=== PATIENT | female | born 1955 | race Caucasian/White ===

== ENCOUNTER 2017-02-17 06:04 | Day surgery (SDC) | payer MEDICAID ==
[2017-02-14 09:40] LABS: HEMATOCRIT 42.3 % (36.0-48.0); HEMOGLOBIN 14.5 g/dL (12-16); MCHC 34.3 g/dL (31.0-37.0); MCV 90.4 fL (80.0-100.0); MEAN PLATELET VOLUME 10.2 fL (7.4-10.4); RBC 4.68 10x6/uL (4.00-5.40); WBC 5.7 10x3/uL (4.8-10.8)
[~2017-02-17] VITALS: Ht 147.3 cm; Wt 53.1 kg
[~2017-02-17 06:04] MED LIST: ADVAIR 250/501 DISK INH; BENZONATATE200 MG PO; COMBIVENT RESPIM4 GM INH; IBUPROFEN800 MG PO; IPRAT-ALBUT 0.5-3 ML UPD; OMNICEF300 MG PO; SINGULAIR10 MG PO; SOLU-MEDRO40 MG/1 M1 PO; ZITHROMAX 500M500 MG PO
[2017-02-17] MEDS ORDERED: ZANAFLEX4 MG PO (06:48)
[2017-02-17 06:49] VITALS: BP 127/68; Ht 147.3 cm; Wt 53.1 kg
[2017-02-17] MEDS ORDERED: MEPERIDINE HCL50 MG PO (09:18)
--- NOTE | 2017-02-17 12:55 | OP ---
PATIENT NAME: DUNIA MCGUIRE MEDICAL RECORD: [id number] :57 LOCATION:D.[facility] ADMISSION DATE: SURGEON: GABBY GOLD MD DATE OF OPERATION: 02/17/2017 SURGEON: Gabyb Gold MD PREOPERATIVE DIAGNOSES: 1. Incisional hernia. 2. Chronic obstructive pulmonary disease. 3. Pulmonary emphysema. 4. Tobacco dependence. POSTOPERATIVE DIAGNOSES: 1. Incisional hernia. 2. Chronic obstructive pulmonary disease. 3. Pulmonary emphysema. 4. Tobacco dependence. PROCEDURE PERFORMED: Laparoscopic incisional hernia repair with mesh. ANESTHESIA: General. COMPLICATIONS: None. SPECIMENS: None. Case was clean. OPERATIVE COURSE: After consent was obtained, the patient was taken to the operating room and placed in the supine position on the operating table. Next, general anesthesia was given via endotracheal intubation after a timeout was performed to confirm the correct patient and procedure. The abdomen was prepped and draped in typical sterile fashion and Ioban dressing was placed. Local anesthetic was injected in the left upper quadrant at Orellana's point. Using a 5-mm bladeless optical trocar, the abdomen was entered under direct laparoscopic vision. Adequate pneumoperitoneum was achieved. The abdominal cavity was inspected. No evidence of bowel injury. No evidence of bleeding. At this time, all remaining trocars were placed, 11-mm trocar into the left lateral quadrant; 5-mm trocar into the right lower, left lower, and right upper quadrants. Laparoscopic lysis of adhesions was performed. The patient had a 4 cm diameter hernia defect at the upper portion of her midline incision as well as significant multiple other small hernia defects within the midline incision. After laparoscopic lysis of adhesions was performed, a Ventralight ST mesh with Echo positioning system was placed in the abdomen. It was 7 inch x 9 inch. It was oriented 9 inches in the cephalad caudad position, 7 cm in width. A Tim-Coni was passed through the hernia defect. The Echo positioning system was inflated and the mesh was held against the anterior abdominal wall. The mesh was then secured with OptiFix tacks in a double crown fashion. The Echo positioning system was removed. The abdominal cavity was inspected. No evidence of bowel injury. No evidence of bleeding. The abdominal cavity was meticulously inspected. There was no evidence of bowel injury. No evidence of bleeding. At this time, all remaining instruments were removed. The abdomen was desufflated. Trocars were removed. Skin was closed with 4-0 Monocryl, Mastisol and Steri-Strips. At the end of the case, all needle and instrument OPERATIVE REPORT [id number] TEET,DUNIA S counts were correct. No complications occurred. The patient was extubated and transferred to the PACU in stable condition. TRANSINT:[id number] Voice Confirmation ID: [id number] DOCUMENT ID: [id number] GABBY GOLD MD at 1255 CC: [id number] DICTATION DATE: 02/17/17915 HOSPITAL PHARMACIST: 02/17/17 1[address] [facility] [address] [place] [address]
== END 2017-02-17 16:25 | disposition home or self-care (01) ==
LOC: D.OPS 06:04 → D.PAN 08:00 → D.OPS 08:00
PROVIDERS: Anesthesiology
DX: K43.2 Incisional hernia without obstruction or gangrene (principal); J44.9 Chronic obstructive pulmonary disease, unspecified; F17.200 Nicotine dependence, unspecified, uncomplicated; Z01.812 Encounter for preprocedural laboratory examination

== ENCOUNTER → 2018-02-02 07:53 | Outpatient (CLI) | payer MEDICAID ==
[2017-02-17 06:49] VITALS: BMI 24.5
[~2018-02-02 07:53] MED LIST changes: +MEPERIDINE HCL50 MG PO; +ZANAFLEX4 MG PO
== END | disposition home or self-care (01) ==
LOC: D.CT 07:53
DX: R10.9 Unspecified abdominal pain (principal)

== ENCOUNTER → 2019-12-28 08:24 | Outpatient (CLI) | payer OTHER ==
[2017-02-17 06:49] VITALS: BMI 24.5
== END | disposition home or self-care (01) ==
LOC: D.MRI 08:24
PROVIDERS: ATTEND Nurse Practitioner Family
DX: M67.471 Ganglion, right ankle and foot (principal)

== ENCOUNTER 2020-07-31 16:43 | Emergency (ER) | payer OTHER ==
[~2020-07-31] VITALS: Ht 147.3 cm; Wt 53.6 kg
[2020-07-31 16:50] VITALS: Ht 147.3 cm; Wt 53.6 kg
[2020-07-31 18:58] LABS: BASOPHILS 1.1 % (0-2); HEMATOCRIT 45.3 % (36.0-48.0); HEMOGLOBIN 15.1 g/dL (12-16); LYMPHOCYTES 29.1 % (15-50); MCH 30.3 pg (26.0-34.0); MCHC 33.4 g/dL (31.0-37.0); MCV 90.6 fL (80.0-100.0); MEAN PLATELET VOLUME 9.5 fL (7.4-10.4); MONOCYTES 7.2 % (2-11); NEUTROPHILS 61.6 % (40-80); RDW 13.5 % (11.5-14.5); WBC 8.8 10x3/uL (4.8-10.8)
[2020-07-31 19:05] LABS: APTT 23.7 SECONDS (22.8-39.4); INR 1.07 (0.85-1.17); PROTIME 12.9 SECONDS (11.6-15.0)
[2020-07-31 19:12] LABS: CALC OSMOLALITY 266 mosm/kg (275-300); CALCIUM 9.6 mg/dL (8.5-10.1); CARBON DIOXIDE 28.3 mmol/L (21.0-32.0); CHLORIDE - SERUM 99 mmol/L (98-107); CREATININE - SERUM 0.8 mg/dL (0.6-1.3); GLUCOSE 110 mg/dL (74-106); SODIUM 133 mmol/L (136-145); UREA NITROGEN 12 mg/dL (7-18); eGFR NON AFRICAN AMERICAN 76 mL/min (90-120)
[2020-07-31 19:15] LABS: PLATELET COUNT 242 10x3/uL (130-400)
[2020-07-31 19:29] LABS: ALBUMIN 4.1 g/dL (3.4-5.0); ALKALINE PHOSPHATASE 143 U/L (30-120); ALT (SGPT) 27 U/L (10-68); BILIRUBIN - TOTAL 0.32 mg/dL (0.2-1.3); CKMB 1.4 U/L (0.0-3.6); CREATINE KINASE 85 UL (21-215); PROTEIN - SERUM 8.5 g/dL (6.4-8.2); THYROID STIMULATING HORMONE 3.89 uIU/mL (0.36-3.74); TROPONIN-I < 0.017 ng/mL (0.000-0.060)
[2020-07-31 19:44] LABS: BILIRUBIN NEGATIVE (NEGATIVE); KETONE NEGATIVE (NEGATIVE); NITRITE NEGATIVE (NEGATIVE); UROBILINOGEN NORMAL mg/dL (< 2)
[2020-07-31 19:53] LABS: UDS - AMPHET NEGATIVE QUAL (NEGATIVE); UDS - BARB NEGATIVE QUAL (NEGATIVE); UDS - BENZO NEGATIVE QUAL (NEGATIVE); UDS - COCAINE NEGATIVE QUAL (NEGATIVE); UDS - OPIATE NEGATIVE QUAL (NEGATIVE); UDS - PCP NEGATIVE QUAL (NEGATIVE); UDS - THC POSITIVE QUAL (NEGATIVE)
[2020-07-31] MEDS ORDERED: SYNTHROID50 MCG PO (20:59)
[2020-07-31 21:27] VITALS: BP 135/48
== END 2020-07-31 21:28 | disposition home or self-care (01) ==
LOC: D.ER 16:43
PROVIDERS: Family Medicine
DX: R20.0 Anesthesia of skin (principal); E03.9 Hypothyroidism, unspecified